=== PATIENT | male | born 1955 | race Caucasian/White ===

== ENCOUNTER 2017-02-06 12:07 | Emergency (ER) | payer OTHER ==
[~2017-02-06] VITALS: Ht 182.9 cm; Wt 79.5 kg
[2017-02-06 14:34] VITALS: BP 108/84
[2017-02-06] MEDS ORDERED: ULTRAM50 MG PO (14:55)
== END 2017-02-06 15:08 | disposition home or self-care (01) ==
LOC: EME 12:07
DX: S06.0X0A Concussion without loss of consciousness, initial encounter (principal); S40.012A Contusion of left shoulder, initial encounter; W50.0XXA Accidental hit or strike by another person, initial encounter; Y93.23 Activity, snow (alpine) (downhill) skiing, snowboarding, sledding, tobogganing and snow tubing; Y92.838 Other recreation area as the place of occurrence of the external cause
CPT/HCPCS: 70450; 73000; 99281; 99284